=== PATIENT | female | born 1950 | race Caucasian/White ===

== ENCOUNTER → 2016-10-02 | Outpatient (CLI) | payer OTHER, MEDICARE ==
[~2016-10-02] MED LIST: AMOX1TAB61 PO; CALCIUM PO; CHOL400T10 PO; HYDR-3240 PO; LEVO112T2 PO; LEVO25TA2 PO; MAGNESIUM PO; MULT1TAB60 PO; SIMV40TA3 PO; SIMV5TAB5 PO
== END | disposition home or self-care (01) ==
LOC: CFH 12:22
PROVIDERS: ATTEND Family Medicine
DX: Z12.31 Encounter for screening mammogram for malignant neoplasm of breast (principal); Z13.820 Encounter for screening for osteoporosis; M47.897 Other spondylosis, lumbosacral region; M85.89 Other specified disorders of bone density and structure, multiple sites; M47.896 Other spondylosis, lumbar region; M25.552 Pain in left hip; N95.8 Other specified menopausal and perimenopausal disorders
CPT/HCPCS: 72110; 73502; 77080; G0202

== ENCOUNTER 2018-12-27 10:59 | Outpatient (CLI) | payer OTHER, MEDICARE ==
[~2018-12-27 10:59] MED LIST changes: +SIMV5TAB14 PO; -SIMV5TAB5 PO
== END 2018-12-27 23:59 | disposition home or self-care (01) ==
LOC: CFH 10:59
PROVIDERS: ATTEND Family Medicine
DX: Z12.31 Encounter for screening mammogram for malignant neoplasm of breast (principal); M85.88 Other specified disorders of bone density and structure, other site
CPT/HCPCS: 77080; 77067

== ENCOUNTER 2021-02-19 11:00 | Outpatient (CLI) | payer MEDICARE | END 2021-02-19 23:59 | disposition home or self-care (01) | LOC: CFH 11:00 | PROVIDERS: ATTEND Internal Medicine | DX: Z12.31 Encounter for screening mammogram for malignant neoplasm of breast (principal); Z13.820 Encounter for screening for osteoporosis; M85.88 Other specified disorders of bone density and structure, other site; N95.8 Other specified menopausal and perimenopausal disorders ==